=== PATIENT | male | born 1960 | race Caucasian/White ===

== ENCOUNTER 2023-03-19 11:40 | Day surgery (SDC) | payer OTHER ==
[~2023-03-19] VITALS: Ht 182.9 cm; Wt 91.0 kg
--- NOTE | ~2023-03-19 | OR ---
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 POSTOPERATIVE DIAGNOSES: 1. Chronic distal esophagitis with Schatzki's ring. No obvious evidence of Villarreal's epithelium. 2. Small hiatal hernia. PROCEDURE: Esophagogastroduodenoscopy with biopsy. ANESTHESIA: Intravenous sedation; fentanyl 100 mcg and Versed 5 mg. INDICATION: This 62-year-old white man is a patient of Dr. Lorenzo Mann. He has previously undergone upper endoscopy in the past, which has shown findings suggestive of Villarreal's esophagus. He currently takes no medication for reflux disease. His last upper endoscopy was in 2019. There was no evidence of dysphagia. He has no family history of esophageal cancer. He previously chewed tobacco much more than he does now. He still drinks three beers a day. He did have a stroke several years ago resulting in right arm weakness and has some residual weakness in the right hand. He does take Eliquis. He is admitted at this time to undergo upper endoscopy to assess for Villarreal's epithelium and other findings that may be present in association with his elevated risk of Villarreal's epithelium and esophageal neoplasm. He understands the risk of bleeding, infection, and perforation related to upper endoscopy and wished to proceed. FINDINGS: A low-grade Schatzki's ring was noted. Chronic esophagitis was noted, but there was no clear evidence of Villarreal's epithelium to my examination. CLOtest was negative. He did have a small hiatal hernia. The duodenum was normal. There is no clear evidence of eosinophilic esophagitis. DESCRIPTION OF PROCEDURE: The patient was brought to the endoscopy suite and given topical lidocaine hypopharyngeal anesthesia, placed in lateral decubitus position. He was given PATIENT NAME: ERIKA MANTILLA OPERATIVE REPORT DATE OF : 62 REPORT #: [id number] PHYSICIAN: OLAMIDE WILD MD PCP: LORENZO MANN MD REPORT IS CONFIDENTIAL AND NOT TO BE RELEASED WITHOUT AUTHORIZATION [facility] [address], [place] [address] Draft intravenous sedation to the point of slurred speech and nystagmus with full cardiopulmonary monitoring. A bite block was placed. An Olympus video upper endoscope was passed in the hypopharynx. Vocal cords were briefly visualized and found to be normal. Scope was advanced to the esophagus. It was normal down to the distal esophagus where chronic inflammatory change was noted and a low-grade Schatzki's ring appreciated. There was no obvious Villarreal's epithelium at that time. There was no sign of neoplasm or varices. The scope was passed to the stomach which was insufflated with air. Rugal folds were normal. There were a few small polyps as well. The pylorus was normal. Scope was passed through into the duodenum, which appeared normal. Biopsies were taken to assess for celiac disease. The scope was withdrawn and biopsies then taken of the antrum and more proximal stomach for both JENNIFER and pathologic testing. CLOtest was negative 15 minutes post procedure. Retroflexed view did show small hiatal hernia. Scope was withdrawn. Biopsies were then taken of the distal esophageal mucosa to assess for possible Villarreal's epithelium, though it clinically was unlikely. Further withdrawal allowed for biopsy of the mid esophagus. The scope was removed and the patient was taken to the recovery room in good condition. CONCLUDING DIAGNOSIS: No clear evidence of Villarreal's epithelium, but he does have chronic distal esophagitis and low-grade Schatzki's ring. PLAN: Would recommend PPI use at this point. He does not describe severe esophagitis nor significant dysphagia currently, though he is at increased risk of problems based on his alcohol use and other findings. He will see us back in the office in about six weeks and we will review his findings then. MD YAZAN Moreno/ASHLYL /[id number] cc: Lorenzo Mann MD PATIENT NAME: ERIKA MANTILLA OPERATIVE REPORT DATE OF : 62 REPORT #: [id number] PHYSICIAN: OLAMIDE WILD MD PCP: LORENZO MANN MD REPORT IS CONFIDENTIAL AND NOT TO BE RELEASED WITHOUT AUTHORIZATION [facility] [address] [place] [address] [place], [place] [address] Draft Copies: LORENZO MANN MD ~ PATIENT NAME: ERIKA MANTILLA [facility] OPERATIVE REPORT DATE OF : 62 REPORT #: [id number] PHYSICIAN: OLAMIDE WILD MD PCP: LORENZO MANN MD REPORT IS CONFIDENTIAL AND NOT TO BE RELEASED WITHOUT AUTHORIZATION
[~2023-03-19 11:40] MED LIST: ELIQUIS5 MG PO; LIPITOR40 MG PO; LISINOPRIL5 MG PO
[2023-03-19 12:08] VITALS: BP 142/82
--- NOTE | 2023-03-19 12:55 | NUR ---
1240 PT COMFORTABLE IN BED, PERSONAL ITEMS WITHIN REACH, CALL BUTTON WITHIN REACH, PT HAS WARM BLANKET. PATIENT IS INFORMED ABOUT THE WAIT TIME AND IS AGREEABLE TO IT.
--- NOTE | 2023-03-19 13:47 | NUR ---
1345 CHECKED ON PT AND UPDATED OF WAIT FOR SURGERY. PT AGREEABLE. PT RESTING IN BED WITH LIGHTS DIMMED, PT HAS NO FUTHER REQUESTS AT THIS TIME. CALL LIGHT WITHIN REACH, PERSONAL ITEMS WITHIN REACH, BED LOW AND LOCKED.
--- NOTE | 2023-03-19 14:36 | NUR ---
1435 HOURLY ROUNDING DONE. PT UPDATED ON WAIT TIME. PATIENT IS AGREEABLE. PT BED LOW AND LOCKED, PERSONAL ITEMS WITHIN REACH, CALL LIGHT WITHIN REACH. PT HAS NO FURTHER QUESTIONS AT THIS TIME.
--- NOTE | 2023-03-19 16:05 | NUR ---
03/19/23 1605 Ange Evans 1557- PT ARRIVES TO PACU, LEFT LATERAL SEMI NGUYEN POSITION. PT AWAKE ON ARRIVAL BUT DROWSY. DENIES PAIN AND NAUSEA. ALL MONITORS APPLIED. LR INFUSING TO RH IV. O2 AT 2L PER NC. ABD SOFT, NON DISTENDED. NO SIGNS OF DISTRESS. 1601- SATS REMAIN 98% ON 2L PER NC, TURNED TO ROOM AIR AT THIS TIME. WILL CONTINUE TO MONITOR. PT RESTING INTERMITTENTLY.
[2023-03-19 16:27] VITALS: BP 112/72
--- NOTE | 2023-03-25 12:57 | PATH ---
[facility] [address], [place] [address] Signed SPECIMEN(S): A DUODENAL BIOPSY SPECIMEN(S): B ANTRUM/ANTRAL BIOPSY SPECIMEN(S): C DISTAL ESOPHAGEAL BIOPSY SPECIMEN(S): D MID ESOPHAGEAL BIOPSY SPECIMEN SOURCE: A. DUODENAL BIOPSY B. ANTRUM/ANTRAL BIOPSY C. DISTAL ESOPHAGEAL BIOPSY D. MID ESOPHAGEAL BIOPSY CLINICAL HISTORY: History of Villarreal's esophagus FINAL PATHOLOGIC DIAGNOSIS: A. Duodenum, biopsy: - Duodenal mucosa with no significant pathologic changes B. Stomach, antrum, biopsy: - Gastric antral and oxyntic mucosa with no significant pathologic changes - Negative for Helicobacter pylori with HE stains C. Esophagus, distal, biopsy: - Squamoglandular mucosa with reactive epithelial changes and intestinal metaplasia; negative for dysplasia - Mildly increased intraepithelial eosinophils (up to 15 eosinophils per high-power field) D. Esophagus, mid, biopsy: - Esophageal squamous mucosa with reactive epithelial changes and mildly increased intraepithelial eosinophils (up to 10 eosinophils per high-power field) BRP MICROSCOPIC EXAMINATION: Histologic sections of all submitted blocks are examined by light microscopy. These findings, together with the gross examination, support the pathologic diagnosis. GROSS DESCRIPTION: A. The specimen, labeled and designated "Day, duodenal biopsy," is received in formalin and consists of two leblanc soft tissue fragments, ranging from 0.2-0.3 cm. Entirely submitted in (A1). B. The specimen, labeled and designated "Day, antral biopsy," is received in PATIENT NAME: ERIKA MANTILLA [facility] DATE OF : 62 REPORT #: [id number] PHYSICIAN: ARLET ABURTO PCP: LORENZO HUDSON MD REPORT IS CONFIDENTIAL AND NOT TO BE RELEASED WITHOUT AUTHORIZATION [facility] [address], [place] [address] Signed formalin and consists of two leblanc soft tissue fragments, ranging from 0.3-0.4 cm. Entirely submitted in (B1). C. The specimen, labeled and designated "Day, distal esophageal biopsy," is received in formalin and consists of five leblanc soft tissue fragments, ranging from 0.1-0.5 cm. Entirely submitted in (C1). D. The specimen, labeled and designated "Day, mid esophageal biopsy," is received in formalin and consists of two leblanc soft tissue fragments, ranging from 0.4-0.6 cm. Entirely submitted in (D1). VB (under the direct supervision of a pathologist) The Gross Description was prepared using a voice recognition system. The report was reviewed for accuracy; however, sound-alike word errors, addition and/or deletions may occur. If there is any question about this report, please contact Client Services. ADDITIONAL NOTES: Immunohistochemical and/or in situ hybridization studies if performed in this case included appropriate positive controls that reacted as expected. This test was developed and its performance characteristics determined by [facility]. It has not been cleared or approved by the U.S. Food and Drug Administration. The FDA has determined that such clearance or approval is not necessary. This test is used for clinical purposes. It should not be regarded as investigational or for research. [facility] is certified under the Clinical Laboratory Improvement Amendments of 1988 (CLIA) as qualified to perform high complexity clinical laboratory testing. PERFORMING LABORATORY: Technical component was performed by [facility], [address] [place] [id number] (CLIA# [id number]). Professional interpretation was performed by [facility], [address] [place] [address] (CLIA#:[id number]). Diagnostician: Felipe Espinal MD Pathologist Electronically Signed 03/25/2023 Copies: PATIENT NAME: ERIKA MANTILLA [facility] DATE OF : 62 REPORT #: [id number] PHYSICIAN: [facility]LET PATHOLOGY PCP: LORENZO HUDSON MD REPORT IS CONFIDENTIAL AND NOT TO BE RELEASED WITHOUT AUTHORIZATION [address] [address] Signed ~ PATIENT NAME: ERIKA MANTILLA [facility] DATE OF : 62 REPORT #: [id number] PHYSICIAN: [facility]LET PATHOLOGY PCP: LORENZO HUDSON MD REPORT IS CONFIDENTIAL AND NOT TO BE RELEASED WITHOUT AUTHORIZATION
== END 2023-03-19 16:30 | disposition home or self-care (01) ==
LOC: DS 11:40 → OPS 11:40 → DS 12:01 → OPS 12:15 → DS 13:00 → OPS 14:00
PROVIDERS: ATTEND Surgery
PROC: 0DB68ZX Excision of Stomach, Via Natural or Artificial Opening Endoscopic, Diagnostic (ICD-10-PCS; 2023-03-19)
PROC: 0DB58ZX Excision of Esophagus, Via Natural or Artificial Opening Endoscopic, Diagnostic (ICD-10-PCS; 2023-03-19)
PROC: 0DB98ZX Excision of Duodenum, Via Natural or Artificial Opening Endoscopic, Diagnostic (ICD-10-PCS; principal; 2023-03-19 13:00)
DX: K22.70 Barrett's esophagus without dysplasia (principal); K22.2 Esophageal obstruction; K20.90 Esophagitis, unspecified without bleeding; K44.9 Diaphragmatic hernia without obstruction or gangrene; K31.7 Polyp of stomach and duodenum; I10 Essential (primary) hypertension; E78.5 Hyperlipidemia, unspecified; F17.220 Nicotine dependence, chewing tobacco, uncomplicated; Z86.73 Personal history of transient ischemic attack (TIA), and cerebral infarction without residual deficits; Z72.89 Other problems related to lifestyle; Z79.01 Long term (current) use of anticoagulants; Z79.899 Other long term (current) drug therapy
CPT/HCPCS: 99153; G0500; J2250; J3010; J7121